=== PATIENT | female | born 1975 | race Caucasian/White ===

== ENCOUNTER 2018-07-05 14:50 | Emergency (ER) | payer MEDICAID ==
[~2018-07-05 14:50] MED LIST: METH-360 PO; PRED10TA PO
== END 2018-07-05 15:24 | disposition left against medical advice (07) ==
LOC: ER 14:50
DX: H92.09 Otalgia, unspecified ear (principal); Z53.21 Procedure and treatment not carried out due to patient leaving prior to being seen by health care provider

== ENCOUNTER 2018-07-08 18:12 | Emergency (ER) | payer MEDICAID ==
[~2018-07-08] VITALS: Ht 154.9 cm; Wt 69.8 kg
[2018-07-08 19:08] LABS: PROTHROMBIN TIME 10.3 SECONDS (9.0-12.0)
[2018-07-08 19:12] LABS: BASOPHILS % (AUTO) 0 % (0-1); EOSINOPHILS % (AUTO) 0.1 % (0-6); HEMATOCRIT 39.1 % (35.0-45.0); HEMOGLOBIN 13.1 g/dl (12.0-16.0); LYMPHOCYTES # (AUTO) 0.4 X10'3 (1.1-4.8); LYMPHOCYTES % (AUTO) 2.9 % (21-51); MEAN CORPUSCULAR HEMOGLOBIN 29.4 PG (27.0-31.0); MEAN CORPUSCULAR HGB CONC 33.5 % (33.0-36.5); MEAN CORPUSCULAR VOLUME 87.8 FL (78-98); MEAN PLATELET VOLUME 9.3 FL (7.4-10.4); MONOCYTES # (AUTO) 0.5 X10'3 (0-0.9); MONOCYTES % (AUTO) 3.9 % (2-12); NEUTROPHILS # (AUTO) 13.1 X10'3 (1.8-7.7); NEUTROPHILS % (AUTO) 93.1 % (42-75); PLATELET COUNT 316 X10'3 (140-440); RED BLOOD COUNT 4.45 X10'6 (4.20-5.60); RED CELL DISTRIBUTION WIDTH 14.7 % (11.5-14.5); WHITE BLOOD COUNT 14.1 X10'3 (4.5-11.0)
[2018-07-08 19:14] LABS: ALANINE AMINOTRANSFERASE 26 U/L (12-78); ALBUMIN 3.3 G/DL (3.4-5.0); ALBUMIN/GLOBULIN RATIO 0.9 (1.1-1.5); ALKALINE PHOSPHATASE 100 IU/L (46-116); ANION GAP 12 (8-16); ASPARTATE AMINO TRANSFERASE 19 U/L (10-37); BILIRUBIN,TOTAL 0.6 MG/DL (0.1-1.0); BLOOD UREA NITROGEN 18 MG/DL (7-18); BUN/CREATININE RATIO 22.5 (6.6-38.0); CALCIUM 8.5 MG/DL (8.5-10.1); CHLORIDE 104 MMOL/L (99-107); GLUCOSE 133 MG/DL (70-104); LIPASE 112 U/L (73-393); POTASSIUM 4.1 MMOL/L (3.5-5.1); SODIUM 142 MMOL/L (135-145); TOTAL CARBON DIOXIDE 26.3 MMOL/L (24-32); TOTAL PROTEIN 6.9 G/DL (6.4-8.2); eGFR 79 ML/MIN
[2018-07-08 19:23] LABS: URINE HCG NEGATIVE (NEG)
[2018-07-08 19:29] LABS: CLARITY,URINE SLIGHTLY CLOUDY (Clear); GLUCOSE, URINE NEGATIVE (Neg); KETONES,URINE 40 mg/dl (Neg); LEUKOCYTE ESTERASE ,URINE NEGATIVE (Neg); NITRITES, URINE NEGATIVE (Neg); OCCULT BLOOD,URINE NEGATIVE (Neg); PROTEIN,URINE NEGATIVE (Neg); UROBILINOGEN,URINE 0.2 E.U/dL (0.2-1.0)
[2018-07-08 19:30] LABS: COLOR,URINE DARK YELLOW (Yellow); UA COLLECTION TYPE CLN CATCH MIDSTREAM
[2018-07-08 19:37] LABS: BACTERIA,URINE 1+ /HPF (Neg); MUCUS STRANDS MANY /LPF (Neg); RBC,URINE NONE SEEN /HPF (0-2); SQUAMOUS EPITHELIAL CELL,UR MANY /LPF (FEW); WBC,URINE 0-4 /HPF (0-4)
[2018-07-08] MEDS ORDERED: metoclopramide 10mg tablet PO ONE (20:05)
[2018-07-08] MEDS ORDERED: famotidine 20mg tablet PO ONE (20:05)
[2018-07-08] MEDS ORDERED: mag hydrox/Alum hydrox/simeth 30ml oral suspension PO ONE (20:05)
[2018-07-08] MEDS ORDERED: HYDROcodone/acetaminophen 5mg/325mg tablet PO ONE (20:05)
[2018-07-08 20:24] LABS: PLATELET ESTIMATE NORMAL; TOTAL CELLS COUNTED 100
[2018-07-08] MEDS ORDERED: METR500T4 PO (21:01)
[2018-07-08] MEDS ORDERED: CIPR-230 PO (21:01)
[2018-07-08] MEDS ORDERED: metroNIDAZOLE 500mg tablet PO ONE (21:05)
[2018-07-08] MEDS ORDERED: ciprofloxacin 250mg tablet PO ONE (21:05)
[2018-07-08 21:18] VITALS: BP 103/53
== END 2018-07-08 21:20 | disposition home or self-care (01) ==
LOC: ER 18:12
DX: K52.9 Noninfective gastroenteritis and colitis, unspecified (principal); R10.10 Upper abdominal pain, unspecified; F15.90 Other stimulant use, unspecified, uncomplicated; Z98.890 Other specified postprocedural states; Z98.51 Tubal ligation status; Z56.0 Unemployment, unspecified; Z79.899 Other long term (current) drug therapy
CPT/HCPCS: 36415; 80053; 81001; 81025; 83690; 85025; 85610; 99284; J3490; J8597

== ENCOUNTER 2019-05-22 14:07 | Emergency (ER) | payer MEDICAID ==
[~2019-05-22] VITALS: Ht 154.9 cm; Wt 75.0 kg
[2019-05-22 14:09] VITALS: BP 118/56
[2019-05-22] MEDS ORDERED: triamcinolone acetonide 40mg/ml inj IM ONE (14:40)
[2019-05-22] MEDS ORDERED: diphenhydrAMINE 50 mg/ml inj IM ONE (14:40)
== END 2019-05-22 15:06 | disposition home or self-care (01) ==
LOC: ER 14:08
DX: L25.5 Unspecified contact dermatitis due to plants, except food (principal); F15.90 Other stimulant use, unspecified, uncomplicated; Z98.890 Other specified postprocedural states; Z98.51 Tubal ligation status; Z56.0 Unemployment, unspecified; Z79.899 Other long term (current) drug therapy
CPT/HCPCS: 96372; 99283; J1200; J3301

== ENCOUNTER 2019-10-18 00:32 | Emergency (ER) | payer MEDICAID ==
[~2019-10-18] VITALS: Ht 154.9 cm; Wt 73.0 kg
[2019-10-18 00:40] VITALS: BP 131/78
[2019-10-18] MEDS ORDERED: ipratropium/albuterol 3ml nebule NEB ONE (01:15)
[2019-10-18] MEDS ORDERED: benzonatate 100mg capsule PO ONE (01:15)
[2019-10-18] MEDS ORDERED: BENZ-16 PO (01:20)
[2019-10-18] MEDS ORDERED: INHA1SPA3 MC (01:20)
[2019-10-18] MEDS ORDERED: ALBU18HF2 INH (01:20)
== END 2019-10-18 01:48 | disposition home or self-care (01) ==
LOC: ER 00:33
DX: J98.01 Acute bronchospasm (principal); F10.99 Alcohol use, unspecified with unspecified alcohol-induced disorder; F15.90 Other stimulant use, unspecified, uncomplicated; Z98.51 Tubal ligation status; Z56.0 Unemployment, unspecified; Z98.890 Other specified postprocedural states; Z79.899 Other long term (current) drug therapy; Y90.9 Presence of alcohol in blood, level not specified
CPT/HCPCS: 94640; 94760; 99283

== ENCOUNTER 2021-02-18 19:44 | Emergency (ER) | payer MEDICAID ==
[~2021-02-18] VITALS: Ht 154.9 cm; Wt 81.8 kg
[~2021-02-18 19:44] MED LIST changes: +ALBU18HF2 INH; +INHA1SPA3 MC
[2021-02-18 19:49] VITALS: BP 130/77
--- NOTE | 2021-02-18 20:42 | NUR ---
pt to room, assumed care.
[2021-02-18] MEDS ORDERED: ibuprofen tablet 400 MG TABLET PO ONE (20:45)
== END 2021-02-18 21:08 | disposition home or self-care (01) ==
LOC: ER 19:45
DX: S93.492A Sprain of other ligament of left ankle, initial encounter (principal); F15.90 Other stimulant use, unspecified, uncomplicated; Z98.51 Tubal ligation status; Z98.890 Other specified postprocedural states; Z72.89 Other problems related to lifestyle; Z56.0 Unemployment, unspecified; Z79.899 Other long term (current) drug therapy; W18.39XA Other fall on same level, initial encounter; Y93.89 Activity, other specified; Y92.89 Other specified places as the place of occurrence of the external cause; Y99.8 Other external cause status
CPT/HCPCS: 73610; 99283; 99284

== ENCOUNTER 2021-04-15 00:01 | Emergency (ER) | payer MEDICAID ==
[~2021-04-15] VITALS: Ht 154.9 cm; Wt 206.0 kg
[2021-04-15 00:07] VITALS: BP 111/50
[2021-04-15] MEDS ORDERED: ondansetron 4mg rapidly disintigrating tab PO ONE (04:45)
[2021-04-15] MEDS ORDERED: TETanus/Pertussis (Acell)/Diphther VAC/PF (Tdap-Adult) 0.5ml syringe IMVAC ONE (04:45)
[2021-04-15] MEDS ORDERED: clindamycin 150mg capsule PO ONE (04:45)
[2021-04-15] MEDS ORDERED: CLIN150C8 PO (04:46)
--- NOTE | 2021-04-15 05:26 | NUR ---
pt unable to recieve tetnus vaccine due to none in hospital stock. aware.
== END 2021-04-15 05:22 | disposition home or self-care (01) ==
LOC: ER 00:02
DX: L03.311 Cellulitis of abdominal wall (principal); R50.9 Fever, unspecified; F15.90 Other stimulant use, unspecified, uncomplicated; Z98.51 Tubal ligation status; Z98.890 Other specified postprocedural states; Z72.89 Other problems related to lifestyle; Z56.0 Unemployment, unspecified; Z79.2 Long term (current) use of antibiotics; Z79.899 Other long term (current) drug therapy
CPT/HCPCS: 99283

== ENCOUNTER 2021-09-19 11:30 | Emergency (ER) | payer MEDICAID ==
[~2021-09-19] VITALS: Ht 154.9 cm; Wt 90.9 kg
[~2021-09-19 11:30] MED LIST changes: +CLIN150C8 PO
[2021-09-19 11:32] VITALS: BP 107/53
[2021-09-19] MEDS ORDERED: NAPR-56 PO (11:56)
[2021-09-19] MEDS ORDERED: ORPH100T2 PO (11:56)
[2021-09-19] MEDS ORDERED: orphenadrine citrate 60mg/2ml inj. IM ONE (12:00)
[2021-09-19] MEDS ORDERED: ketorolac trometh inj. 60 MG/2 ML VIAL IM ONE (12:00)
== END 2021-09-19 12:11 | disposition home or self-care (01) ==
LOC: ER 11:30
DX: G89.29 Other chronic pain (principal); M54.59 Other low back pain; F15.10 Other stimulant abuse, uncomplicated; Z56.0 Unemployment, unspecified; Z79.899 Other long term (current) drug therapy
CPT/HCPCS: 96372; 99284; J1885; J2360